=== PATIENT | male | born 1985 | race Caucasian/White ===

== ENCOUNTER 2019-12-26 00:58 | Emergency (ER) | payer OTHER ==
[~2019-12-26] VITALS: Ht 172.7 cm; Wt 56.7 kg
--- NOTE | 2019-12-26 01:15 | NUR ---
Dr. Olivera at bedside for MSE
[2019-12-26] MEDS ORDERED: LORAZEPAM 2 MG/1 ML VIAL IV ONE (01:30)
[2019-12-26] MEDS ORDERED: IV NORMAL SALINE 1000 ML BAG IV ONE (01:30)
[2019-12-26] MEDS ORDERED: LORAZEPAM 2 MG/1 ML VIAL ONE (01:36)
[2019-12-26 01:38] LABS: BASOPHILS % (AUTO) 0.4 % (0.0-2.0); EOSINOPHILS # (AUTO) 0.1 K/uL (0.0-0.7); EOSINOPHILS % (AUTO) 1.7 % (0.0-7.0); HEMOGLOBIN 15.7 g/dL (12.5-16.3); LYMPHOCYTES # (AUTO) 2.7 K/uL (20.0-40.0); LYMPHOCYTES % (AUTO) 33.7 % (20.5-51.5); MEAN CORPUSCULAR HEMOGLOBIN 32.8 uug (23.8-33.4); MEAN CORPUSCULAR HGB CONC 34 g/dL (32.5-36.3); MEAN CORPUSCULAR VOLUME 96.2 fL (73.0-96.2); MONOCYTES # (AUTO) 1.1 K/uL (2.0-10.0); MONOCYTES % (AUTO) 13.4 % (0.0-11.0); NEUTROPHILS # (AUTO) 4.1 K/uL (1.8-8.9); NEUTROPHILS % (AUTO) 50.8 % (38.5-71.5); PLATELET COUNT (AUTO) 194 K/uL (152-348); RED BLOOD CELL COUNT(AUTO) 4.78 MIL/uL (4.06-5.63); WHITE BLOOD COUNT (AUTO) 8.2 K/uL (3.6-10.2)
[2019-12-26 01:52] LABS: CREATININE 0.8 mg/dL (0.6-1.3)
[2019-12-26 02:02] LABS: BILIRUBIN,DIRECT 0.1 mg/dL (0.0-0.2); BILIRUBIN,TOTAL 0.4 mg/dL (0.2-1.0); TOTAL PROTEIN, SERUM 7.3 g/dL (6.4-8.2)
[2019-12-26] MEDS ORDERED: PANTOPRAZOLE SODIUM 40 MG VIAL ONE (02:10)
[2019-12-26] MEDS ORDERED: PANTOPRAZOLE SODIUM 40 MG VIAL IV ONE (02:15)
--- NOTE | 2019-12-26 02:40 | NUR ---
pt in bed. no s/s of distress. a/ox4. able to speak in complete sentences. follows commands respirations even and unlabored no s/s of distress
--- NOTE | 2019-12-26 03:29 | NUR ---
Patient discharged to home in stable condition. Written and verbal after care instructions given. Patient verbalizes understanding of instructions. Stressed follow up or return to ER for worsening s/s. aa/ox4. able to speak in complete sentences. follows commands respirations even and unlabored no s/s of distress ambulatory with steady gait all belongings with pt pt will take lyft home instructed not to drive
[2019-12-26 03:33] VITALS: BP 135/95
== END 2019-12-26 03:35 | disposition home or self-care (01) ==
LOC: ER 01:02
DX: F10.230 Alcohol dependence with withdrawal, uncomplicated (principal); R94.8 Abnormal results of function studies of other organs and systems
CPT/HCPCS: 36415; 80048; 80076; 83690; 85025; 96361; 96374; 96375; 99284; C9113; J2060; A4663; J7030